=== PATIENT | female | born 1970 | race Caucasian/White ===

== ENCOUNTER → 2018-07-05 09:40 | Outpatient (CLI) | payer OTHER ==
[~2018-07-05 09:40] MED LIST: SYNTHROID50 MCG
== END | disposition home or self-care (01) ==
LOC: LAB 09:40
DX: E03.8 Other specified hypothyroidism (principal); R73.09 Other abnormal glucose; E55.9 Vitamin D deficiency, unspecified; E78.2 Mixed hyperlipidemia

== ENCOUNTER 2019-01-28 07:19 | Outpatient (CLI) | payer OTHER | END 2019-01-28 15:00 | disposition home or self-care (01) | LOC: LAB 07:19 | DX: E03.8 Other specified hypothyroidism (principal); E11.65 Type 2 diabetes mellitus with hyperglycemia; E78.2 Mixed hyperlipidemia; E55.9 Vitamin D deficiency, unspecified; Z00.00 Encounter for general adult medical examination without abnormal findings; I10 Essential (primary) hypertension; E78.00 Pure hypercholesterolemia, unspecified; Z11.4 Encounter for screening for human immunodeficiency virus [HIV]; Z12.11 Encounter for screening for malignant neoplasm of colon; Z21 Asymptomatic human immunodeficiency virus [HIV] infection status; R79.89 Other specified abnormal findings of blood chemistry ==

== ENCOUNTER 2019-01-28 08:28 | Outpatient (CLI) | payer OTHER | END 2019-01-28 08:53 | disposition home or self-care (01) | LOC: MAMO-SONO 08:28 | DX: Z12.31 Encounter for screening mammogram for malignant neoplasm of breast (principal); Z87.898 Personal history of other specified conditions; N63.10 Unspecified lump in the right breast, unspecified quadrant; N63.20 Unspecified lump in the left breast, unspecified quadrant; N64.89 Other specified disorders of breast; N64.59 Other signs and symptoms in breast; R10.2 Pelvic and perineal pain; N94.89 Other specified conditions associated with female genital organs and menstrual cycle; N94.0 Mittelschmerz; E04.2 Nontoxic multinodular goiter ==

== ENCOUNTER → 2019-03-15 15:53 | Outpatient (CLI) | payer OTHER | END | disposition home or self-care (01) | LOC: LAB 15:53 | DX: N39.0 Urinary tract infection, site not specified (principal) ==

== ENCOUNTER 2020-07-25 14:08 | Outpatient (CLI) | payer OTHER | END 2020-07-25 14:27 | disposition home or self-care (01) | LOC: SONOGRAMA 14:08 → MAMO-SONO 14:15 → SONOGRAMA 14:27 | DX: E04.2 Nontoxic multinodular goiter (principal) ==

== ENCOUNTER 2021-03-06 10:02 | Outpatient (CLI) | payer OTHER | END 2021-03-06 10:14 | disposition home or self-care (01) | LOC: SONOGRAMA 10:02 | DX: E04.2 Nontoxic multinodular goiter (principal) ==

== ENCOUNTER 2021-03-20 10:11 | Outpatient (CLI) | payer OTHER | END 2021-03-20 10:26 | disposition home or self-care (01) | LOC: MAMO-SONO 10:11 | PROVIDERS: ATTEND Obstetrics & Gynecology | DX: N94.0 Mittelschmerz (principal); R10.2 Pelvic and perineal pain; N94.89 Other specified conditions associated with female genital organs and menstrual cycle ==

== ENCOUNTER 2022-04-02 10:47 | Outpatient (CLI) | payer OTHER | END 2022-04-02 11:08 | disposition home or self-care (01) | LOC: MAMO-SONO 10:47 | PROVIDERS: ATTEND Obstetrics & Gynecology | DX: N63.0 Unspecified lump in unspecified breast (principal); N64.59 Other signs and symptoms in breast; N64.9 Disorder of breast, unspecified; N94.0 Mittelschmerz; R10.2 Pelvic and perineal pain; N94.89 Other specified conditions associated with female genital organs and menstrual cycle ==